=== PATIENT | female | born 1945 | race Two or more races ===

== ENCOUNTER 2025-06-10 22:10 | Inpatient (IN) | payer MEDICARE, OTHER ==
[2025-06-10] MEDS ORDERED: ALBUTEROL SO4 2.5/IPRATROPIUM 0.5 INH SOL 3 ML VIAL.NEB. NEB ONE (23:30)
[2025-06-10] MEDS: ALBUTEROL SO4 2.5/IPRATROPIUM 0.5 INH SOL 3 ML VIAL.NEB. NEB SCH (23:31)
[2025-06-10] MEDS ORDERED: ACETAMINOPHEN INJECTION 100 ML ONE (23:53)
[2025-06-10] MEDS ORDERED: DEXAMETHASONE SOD PHOSPHATE 10 MG/1 ML VIAL ONE (23:53)
[2025-06-11] MEDS: LACTATED RINGERS SOLUTION 1000 ML INFUS.BAG IV ONE (00:05)
[2025-06-11] MEDS: ACETAMINOPHEN 1000 MG/100 ML BAG IVPB ONE ×2 (00:05→23:17)
[2025-06-11 00:22] LABS: ABSOLUTE IMMATURE GRANULOCYTES 0.01 x10^3/uL (0.0-0.031); BASOPHILS # 0.01 x10^3/uL (0.01-0.08); BG HCT 39.0 % (32.4-45.2); EOSINOPHIL % 0.7 % (0.7-5.8); EOSINOPHILS # 0.05 x10^3/uL (0.04-0.36); MCHC 32.9 g/dl (32.2-35.5); MEAN CELL VOLUME 90.6 fl (79.4-94.8); MEAN PLT VOLUME 10.7 fl (9.4-12.3); MONOCYTE # 0.48 x10^3/uL (0.24-0.86); MONOCYTE % 6.4 % (4.7-12.5); RDW 12.1 % (12.4-16.6); VENOUS BASE EXCESS 0.7 mmol/L (-2-2); VENOUS O2 SATURATION 78.9 % (70-80); VENOUS PCO2 42.6 mmHg (38-52); VENOUS PH 7.398 (7.310-7.410)
[2025-06-11] MEDS: DEXAMETHASONE SOD PHOSPHATE 20 MG/5 ML VIAL IVPB ONE (00:28)
[2025-06-11 00:40] LABS: GLUCOSE,RANDOM 413 mg/dL (74-106)
[2025-06-11 00:41] LABS: TOT PROT 6.6 g/dl (6.4-8.2)
[2025-06-11 00:42] LABS: CO2 23 mmol/L (21-32)
[2025-06-11 00:43] LABS: ALK PHOS 126 U/L (40-150)
[2025-06-11 00:46] LABS: CREATININE 1.22 mg/dL (0.55-1.3); SGOT/AST 15 U/L (5-34); SGPT/ALT 11 U/L (0-55)
[2025-06-11 00:54] LABS: N-TERMINAL BNP 157.0 pg/mL (0-299.9)
[2025-06-11 01:07] LABS: HCV DIAGNOSTIC IN-HOUSE W/RFLX NON-REACTIVE (NONREACTIVE); HIV INTERPRETATION NEGATIVE (NEGATIVE)
[2025-06-11 02:03] LABS: URINE APPEARANCE CLOUDY; URINE COLOR YELLOW; URINE GLUCOSE (UA) >1000 mg/dl (NEGATIVE)
[2025-06-11 02:04] LABS: URINE BILIRUBIN NEGATIVE (NEGATIVE); URINE KETONE TRACE (NEGATIVE); URINE LEUK ESTERASE 3+ (NEGATIVE); URINE NITRITE POSITIVE (NEGATIVE); URINE PROTEIN NEGATIVE (NEGATIVE); URINE UROBILINOGEN 0.2 mg/dL (0.2-1.0)
[2025-06-11] MEDS ORDERED: CEFTRIAXONE 1 GM/50 ML BAG ONE (02:08)
[2025-06-11] MEDS: CEFTRIAXONE 1,000 MG in DEXTROSE 5%-WATER - 50 ML IVPB ONE (02:14)
[2025-06-11] MEDS: SODIUM CHLORIDE 0.9% 500 ML INFUS.BAG IV ONE (02:14)
[2025-06-11] MEDS ORDERED: LEVALBUTEROL HCL 0.63 MG/3 ML VIAL.NEB. IH PRN (06:05)
[2025-06-11] MEDS ORDERED: INSULIN ASPART SLIDING SCALE (NOVOLOG) 1 VIAL SQ ONE (06:41)
[2025-06-11 06:42] LABS: MCHC 32.6 g/dl (32.2-35.5); MEAN CELL VOLUME 91.0 fl (79.4-94.8); MEAN PLT VOLUME 10.9 fl (9.4-12.3); RDW 12.2 % (12.4-16.6)
[2025-06-11] MEDS: INSULIN ASPART SLIDING SCALE (NOVOLOG) 1 VIAL SQ SCH (06:43)
[2025-06-11 07:38] VITALS: BMI 29.3
[2025-06-11 08:09] LABS: GLUCOSE,RANDOM 474 mg/dL (74-106); TOT PROT 6.6 g/dl (6.4-8.2)
[2025-06-11 08:10] LABS: CO2 17 mmol/L (21-32)
[2025-06-11 08:12] LABS: ALK PHOS 117 U/L (40-150)
[2025-06-11 08:14] LABS: SGOT/AST 13 U/L (5-34); SGPT/ALT 11 U/L (0-55)
[2025-06-11 08:15] LABS: CREATININE 0.96 mg/dL (0.55-1.3)
[2025-06-11] MEDS: ENOXAPARIN NA (PORCINE) 40 MG/0.4 ML DISP.SYRIN SQ SCH (09:39)
[2025-06-11] MEDS: BUDESONIDE/FORMETEROL FUMARATE 80/4.5 mcg INHALER IH SCH (13:17)
[2025-06-11] MEDS: LOSARTAN POTASSIUM 50 MG TABLET PO SCH (13:17)
[2025-06-12] MEDS: CEFTRIAXONE 1 GM in DEXTROSE 5%-WATER - 50 ML IVPB SCH (02:05)
[2025-06-12 07:50] LABS: ABSOLUTE IMMATURE GRANULOCYTES 0.03 x10^3/uL (0.0-0.031); BASOPHILS # 0.01 x10^3/uL (0.01-0.08); EOSINOPHIL % 0.1 % (0.7-5.8); EOSINOPHILS # 0.01 x10^3/uL (0.04-0.36); MCHC 32.5 g/dl (32.2-35.5); MEAN CELL VOLUME 90.3 fl (79.4-94.8); MEAN PLT VOLUME 11.2 fl (9.4-12.3); MONOCYTE # 0.48 x10^3/uL (0.24-0.86); MONOCYTE % 6.2 % (4.7-12.5); RDW 12.4 % (12.4-16.6)
[2025-06-12 08:18] LABS: GLUCOSE,RANDOM 283.0 mg/dL (74-106)
[2025-06-12 08:19] LABS: TOT PROT 5.7 g/dl (6.4-8.2)
[2025-06-12 08:20] LABS: CO2 22.0 mmol/L (21-32)
[2025-06-12 08:22] LABS: ALK PHOS 84.0 U/L (40-150)
[2025-06-12 08:24] LABS: SGOT/AST 15.0 U/L (5-34); SGPT/ALT 8.0 U/L (0-55)
[2025-06-12 08:25] LABS: CREATININE 1.06 mg/dL (0.55-1.3)
[2025-06-12] MEDS ORDERED: ACETAMINOPHEN INJECTION 100 ML ONE (13:11)
[2025-06-12] MEDS: MAGNESIUM 2GM/50ML STERILE WATER IVPB IVPB ONE (13:42)
[2025-06-12] MEDS: dilTIAZem HCL 25 MG/5 ML - 5 ML VIAL IVPUSH ONE (13:42)
[2025-06-12] MEDS: IBUPROFEN 800 MG/8 ML IJ IVPB PRN (13:48)
[2025-06-12] MEDS ORDERED: ONDANSETRON 4 MG/2 ML VIAL IVPUSH PRN (13:53)
[2025-06-12] MEDS: ONDANSETRON 4 MG/2 ML VIAL IVPUSH ONE (13:56)
[2025-06-12] MEDS: ACETAMINOPHEN 1000 MG/100 ML BAG IVPB PRN (14:01)
[2025-06-12] MEDS: SODIUM CHLORIDE 1,000 ML IV STA (14:01)
[2025-06-12] MEDS: ERTAPENEM SODIUM 1 GM in SODIUM CHLORIDE 50 ML IVPB ONE (14:01)
[2025-06-12] MEDS ORDERED: VANCOMYCIN 1,000 MG in DEXTROSE 5%-WATER - 250 ML IVPB SCH (14:15)
[2025-06-12 14:19] LABS: MCHC 32.6 g/dl (32.2-35.5); MEAN CELL VOLUME 90.3 fl (79.4-94.8); MEAN PLT VOLUME 10.5 fl (9.4-12.3); RDW 12.3 % (12.4-16.6)
[2025-06-12 14:43] LABS: LACTIC ACID 4.2 mmol/L (0.4-2.0)
[2025-06-12] MEDS: VANCOMYCIN/WATER FOR INJ (PEG) 1,000 MG/200 ML BAG IVPB ONE (14:52)
[2025-06-12] MEDS ORDERED: VANCOMYCIN/WATER FOR INJ (PEG) 1 GM/200 ML BAG IVPB SCH (15:00)
[2025-06-12] MEDS: LACTATED RINGERS SOLUTION 1,000 ML/1,000 ML INFUS.BAG IV SCH ×2 (15:47→16:52)
[2025-06-12] MEDS ORDERED: LACTATED RINGERS SOLUTION 1,000 ML/1,000 ML INFUS.BAG IV SCH (16:35)
[2025-06-12] MEDS: MEROPENEM 1 GM in SODIUM CHLORIDE 100 ML IVPB SCH (17:15)
[2025-06-12] MEDS: DOXYCYCLINE INJECTION 100 MG in DEXTROSE 5%-WATER 100 ML IVPB SCH (17:39)
[2025-06-12] MEDS ORDERED: MEROPENEM 1 GM in SODIUM CHLORIDE 100 ML IVPB SCH (18:00)
[2025-06-12] MEDS ORDERED: MEROPENEM 1 GM in DEXTROSE 5%-WATER 100 ML IVPB SCH (18:00)
[2025-06-12] MEDS: MELATONIN 5 MG TABLETS PO ONE (22:27)
[2025-06-13] MEDS: SODIUM CHLORIDE 500 ML IV STA (03:15)
[2025-06-13] MEDS: VANCOMYCIN/WATER FOR INJ (PEG) 1,000 MG/200 ML BAG IVPB ONE (04:34)
[2025-06-13 07:02] LABS: MCHC 32.3 g/dl (32.2-35.5); MEAN CELL VOLUME 92.2 fl (79.4-94.8); MEAN PLT VOLUME 11.2 fl (9.4-12.3); RDW 12.6 % (12.4-16.6)
[2025-06-13 07:26] LABS: GLUCOSE,RANDOM 186.0 mg/dL (74-106); TOT PROT 4.7 g/dl (6.4-8.2)
[2025-06-13 07:28] LABS: CO2 22.0 mmol/L (21-32)
[2025-06-13 07:29] LABS: ALK PHOS 79.0 U/L (40-150)
[2025-06-13 07:32] LABS: CREATININE 0.99 mg/dL (0.55-1.3); SGOT/AST 46.0 U/L (5-34); SGPT/ALT 20.0 U/L (0-55)
[2025-06-13] MEDS ORDERED: INSULIN GLARGINE (LANTUS) 100 UNITS/ML UNITS SQ SCH (10:00)
[2025-06-13] MEDS: MEROPENEM 1 GM in SODIUM CHLORIDE 100 ML IVPB SCH (11:16)
[2025-06-13] MEDS: ENOXAPARIN NA (PORCINE) 40 MG/0.4 ML DISP.SYRIN SQ SCH (11:23)
[2025-06-13] MEDS: MEROPENEM 1 GM in DEXTROSE 5%-WATER 100 ML IVPB SCH (12:04)
[2025-06-13] MEDS: LACTATED RINGERS SOLUTION 1,000 ML/1,000 ML INFUS.BAG IV SCH (13:38)
[2025-06-13] MEDS: IBUPROFEN 800 MG/8 ML IJ IVPB SCH (19:40)
[2025-06-14 07:35] LABS: MCHC 32.8 g/dl (32.2-35.5); MEAN CELL VOLUME 92.2 fl (79.4-94.8); MEAN PLT VOLUME 11.2 fl (9.4-12.3); RDW 12.2 % (12.4-16.6)
[2025-06-14] MEDS ORDERED: INSULIN GLARGINE (LANTUS) 100 UNITS/ML UNITS SQ SCH (07:37)
[2025-06-14 07:47] LABS: GLUCOSE,RANDOM 223.0 mg/dL (74-106); TOT PROT 5.2 g/dl (6.4-8.2)
[2025-06-14 07:48] LABS: CO2 23.0 mmol/L (21-32)
[2025-06-14 07:50] LABS: ALK PHOS 80.0 U/L (40-150)
[2025-06-14 07:52] LABS: SGOT/AST 35.0 U/L (5-34); SGPT/ALT 18.0 U/L (0-55)
[2025-06-14 07:53] LABS: CREATININE 0.85 mg/dL (0.55-1.3)
[2025-06-14] MEDS ORDERED: LEVALBUTEROL HCL 0.63 MG/3 ML VIAL.NEB. IH PRN (18:26)
[2025-06-14] MEDS: LOSARTAN POTASSIUM 50 MG TABLET PO ONE (19:03)
[2025-06-14] MEDS: BUDESONIDE/FORMETEROL FUMARATE 80/4.5 mcg INHALER IH SCH (21:14)
[2025-06-14] MEDS: MELATONIN 5 MG TABLETS PO PRN (22:03)
[2025-06-15] MEDS: MEROPENEM 1 GM in DEXTROSE 5%-WATER 100 ML IVPB SCH (02:06)
[2025-06-15] MEDS: INSULIN GLARGINE (LANTUS) 100 UNITS/ML UNITS SQ SCH (06:17)
[2025-06-15] MEDS: INSULIN ASPART SLIDING SCALE (NOVOLOG) 1 VIAL SQ SCH (06:18)
[2025-06-15 07:39] LABS: MCHC 32.8 g/dl (32.2-35.5); MEAN CELL VOLUME 90.1 fl (79.4-94.8); MEAN PLT VOLUME 10.7 fl (9.4-12.3); RDW 12.0 % (12.4-16.6)
[2025-06-15 08:12] LABS: GLUCOSE,RANDOM 224.0 mg/dL (74-106)
[2025-06-15 08:13] LABS: TOT PROT 5.4 g/dl (6.4-8.2)
[2025-06-15 08:14] LABS: CO2 26.0 mmol/L (21-32)
[2025-06-15 08:15] LABS: ALK PHOS 84.0 U/L (40-150)
[2025-06-15 08:18] LABS: CREATININE 0.78 mg/dL (0.55-1.3); SGOT/AST 24.0 U/L (5-34); SGPT/ALT 15.0 U/L (0-55)
[2025-06-15] MEDS: ENOXAPARIN NA (PORCINE) 40 MG/0.4 ML DISP.SYRIN SQ SCH (09:48)
[2025-06-15] MEDS: LOSARTAN POTASSIUM 50 MG TABLET PO SCH (09:48)
[2025-06-16 08:07] LABS: ABSOLUTE IMMATURE GRANULOCYTES 0.03 x10^3/uL (0.0-0.031); BASOPHILS # 0.00 x10^3/uL (0.01-0.08); EOSINOPHIL % 4.6 % (0.7-5.8); EOSINOPHILS # 0.16 x10^3/uL (0.04-0.36); MCHC 32.0 g/dl (32.2-35.5); MEAN CELL VOLUME 90.9 fl (79.4-94.8); MEAN PLT VOLUME 10.2 fl (9.4-12.3); MONOCYTE # 0.30 x10^3/uL (0.24-0.86); MONOCYTE % 8.6 % (4.7-12.5); RDW 11.9 % (12.4-16.6)
[2025-06-16 08:59] LABS: GLUCOSE,RANDOM 170.0 mg/dL (74-106); TOT PROT 5.7 g/dl (6.4-8.2)
[2025-06-16 09:00] LABS: CO2 26.0 mmol/L (21-32)
[2025-06-16 09:01] LABS: ALK PHOS 90.0 U/L (40-150)
[2025-06-16 09:04] LABS: CREATININE 0.8 mg/dL (0.55-1.3); SGOT/AST 24.0 U/L (5-34); SGPT/ALT 16.0 U/L (0-55)
[2025-06-16] MEDS: INSULIN ASPART SLIDING SCALE (NOVOLOG) 1 VIAL SQ SCH (12:04)
[2025-06-16] MEDS: MELATONIN 5 MG TABLETS PO SCH (21:34)
[2025-06-16] MEDS: ACETAMINOPHEN 325 MG TABLET (FP) PO ONE (21:34)
[2025-06-16 22:13] VITALS: RESP 18
[2025-06-17 07:41] LABS: MCHC 33.1 g/dl (32.2-35.5); MEAN CELL VOLUME 90.0 fl (79.4-94.8); MEAN PLT VOLUME 10.1 fl (9.4-12.3); RDW 12.0 % (12.4-16.6)
[2025-06-17 08:15] LABS: GLUCOSE,RANDOM 187.0 mg/dL (74-106); TOT PROT 5.7 g/dl (6.4-8.2)
[2025-06-17 08:16] LABS: CO2 26.0 mmol/L (21-32)
[2025-06-17 08:18] LABS: ALK PHOS 90.0 U/L (40-150)
[2025-06-17 08:20] LABS: SGOT/AST 22.0 U/L (5-34); SGPT/ALT 21.0 U/L (0-55)
[2025-06-17 08:21] LABS: CREATININE 0.79 mg/dL (0.55-1.3)
[2025-06-18 09:30] LABS: MCHC 32.7 g/dl (32.2-35.5); MEAN CELL VOLUME 90.1 fl (79.4-94.8); MEAN PLT VOLUME 10.3 fl (9.4-12.3); RDW 12.2 % (12.4-16.6)
[2025-06-18 09:52] LABS: GLUCOSE,RANDOM 139.0 mg/dL (74-106)
[2025-06-18 09:53] LABS: TOT PROT 5.8 g/dl (6.4-8.2)
[2025-06-18 09:54] LABS: CO2 24.0 mmol/L (21-32)
[2025-06-18 09:55] VITALS: BP 147/72; PULSE 100; TEMP 98.4
[2025-06-18 09:55] LABS: ALK PHOS 91.0 U/L (40-150)
[2025-06-18 09:58] LABS: CREATININE 0.82 mg/dL (0.55-1.3); SGOT/AST 21.0 U/L (5-34); SGPT/ALT 22.0 U/L (0-55)
[2025-06-18] MEDS ORDERED: INSULIN ASPART SLIDING SCALE (NOVOLOG) 1 VIAL SQ ONE (10:59)
== END 2025-06-18 11:55 | disposition home or self-care (01) | DRG 720 ==
LOC: JER 22:10 → JERBED 06-11 03:44 → J4W 06-11 05:48 → OBSVTOIN 06-11 11:28 → J8W 06-14 18:24
PROVIDERS: ADMIT Hospitalist; ATTEND Nurse Practitioner Family
DX: A41.89 Other specified sepsis (principal); I10 Essential (primary) hypertension; R09.02 Hypoxemia; N39.0 Urinary tract infection, site not specified; B96.1 Klebsiella pneumoniae [K. pneumoniae] as the cause of diseases classified elsewhere; E11.65 Type 2 diabetes mellitus with hyperglycemia; I45.10 Unspecified right bundle-branch block; E87.20 Acidosis, unspecified; J45.31 Mild persistent asthma with (acute) exacerbation; J40 Bronchitis, not specified as acute or chronic
CPT/HCPCS: 36415; 71045-TC-FY; 71046-TC-FY; 71275-TC; 74178-TC; 80053; 81003; 82803; 82962; 83036; 83605; 83735; 83880; 84100; 84484; 85025; 85027; 86803; 87040; 87086; 87389; 87637-QW; 87899; 93005; 93010; 93306-TC; 93970-TC; 94010; 97116-GP; 97162-GP; 99285-25; G0378; Q9967